=== PATIENT | male | born 1975 | race Caucasian/White ===

== ENCOUNTER 2020-06-17 20:52 | Emergency (ER) | payer SELFPAY ==
[2020-06-17 20:58] VITALS: BP 194/127; PULSE 143; RESP 18; TEMP 36.4; O2SAT 97; BMI 27.2
[2020-06-17 21:22] LABS: Urine Color Red (Yellow)
[2020-06-17 21:23] LABS: Add Urine Microscopic? YES; Bacteria Urine 1+ /hpf; Bilirubin Urine 1+ (Negative); Blood Urine 3+ (Negative); Glucose Urine UA Norm (Normal); Ketones Urine 1+ (Negative); Leukocyte Esterase Urine Trace (Negative); Nitrate Urine Positive (Negative); Protein Urine 3+ (Negative); RBC Urine TOO NUMEROUS TO CNT /hpf (0-2); Specific Gravity, Urine 1.025 (1.005-1.030); Squamous Epithelial Cell Urine 0-4 /hpf (0-5); Urine Appearance Bloody (CLEAR); Urobilinogen Urine 1 mg/dL (Negative); WBC Urine 0-4 /hpf (0-5); pH Urine 5 (5-7)
[2020-06-17 21:24] LABS: Add Urine Culture? Yes
--- NOTE | 2020-06-17 21:26 | ECG_ITS ---
[facility] Test Date: 2020-06-17 Pat Name: Mario Alberto Valerio Department: Room: Gender: Male Print Production Coordinator: : 1975 Requested By: Tanna Rangel Order Number: [id number] Villalobos MD: Peyton Coyne M.D. Measurements Intervals [place] Rate: 116 P: 60 WI: 129 QRS: 46 QRSD: 80 T: 21 QT: 313 QTc: 435 Interpretive Statements SINUS TACHYCARDIA MINIMAL VOLTAGE CRITERIA FOR LVH, CONSIDER NORMAL VARIANT [MEETS CRITERIA IN ONE OF: R(aVL), S(V1), R(V5), R(V5/V6)+S(V1)] NONSPECIFIC T-WAVE ABNORMALITY ABNORMAL RHYTHM ECG No previous ECG available for comparison Electronically Signed On 06-19-2020 20:51:57 CDT by Peyton Coyne M.D. [email or web address]
[2020-06-17 22:12] VITALS: BP 169/126; PULSE 129; RESP 13; O2SAT 97
--- NOTE | 2020-06-17 22:26 | ED_ITS ---
HPI - Male Genitourinary General: Chief complaint: Urogenital-Male Stated complaint: urinating blood Time Seen by Provider: 06/17/20 21:47 Source: patient Mode of arrival: ambulatory Limitations: no limitations History of Present Illness: HPI Narrative: 44-year-old male states that he has had hematuria over the last month. States is gotten once worse over the last 2 days and is now having large amounts of hematuria. He has had some suprapubic pain as well. He denies any fever. Denies any testicle pain denies any flank pain. He denies any worsening improving factors. He is not on any blood thinners. Associated symptoms: Reports dysuria and hematuria; Deny nausea or vomiting Review of Systems Const: Denies: fever(s), chills, body aches or change in appetite Eyes: Denies: blurry vision or eye discomfort ENMT: Denies: throat pain or dental pain Card: Denies: chest pain Resp: Denies: dyspnea GI: Denies: abdominal pain, nausea, vomiting or diarrhea : Reports: dysuria and hematuria Musc: Denies: neck pain or back pain Skin/Breast: Denies: rash Neuro: Denies: headache(s) Psych: Denies: depression Seamus/Lymph: Denies: easy bruising All/Imm: Denies: urticaria Physical Exam Const: COMMON NORMALS: no acute distress, patient oriented x3 and healthy appearing HENMT: COMMON NORMALS: normocephalic and atraumatic HEAD & SCALP: normocephalic and atraumatic Eye: COMMON NORMALS: Equal, round and reactive pupils present and EOMs intact bilaterally PUPIL: Yes Equal, round and reactive pupils present Neck/C-Spine: COMMON NORMALS: full ROM and supple Chest: COMMONS NORMALS: normal inspection of the chest and normal palpation of entire chest wall Resp: COMMON NORMALS: normal respiratory effort, No retractions, No use of accessory muscles and clear to auscultation bilaterally AUSCULTATION: clear to auscultation bilaterally Cardio: COMMON NORMALS: regular rhythm and No murmurs present (Cardio) RATE: tachycardic RHYTHM: regular rhythm GI: COMMON NORMALS: Normal to inspection, nondistended, normoactive bowel sounds present, Soft to palpation, non-tender and no masses PALPATION: Yes Soft to palpation Extremity: COMMON NORMALS: normal to inspection and full ROM Neuro: COMMON NORMALS: patient oriented x3, moves all extremities and no focal motor deficits Psych: COMMON NORMALS: mental status grossly normal, Normal thought process present and cooperative THOUGHT PROCESS: Normal thought process present Skin: COMMON NORMALS: no rashes or lesions noted and no wounds GENERAL SKIN EXAM: no rashes or lesions noted Course Vital Signs: Vital signs: Vital Signs Temperature 97.5 F L 06/17/20 20:58 Pulse Rate 129 H 06/17/20 22:12 Respiratory Rate 13 06/17/20 22:12 Blood Pressure 169/126 06/17/20 22:12 Pulse Oximetry 97 06/17/20 22:12 MDM - Male MDM Narrative: Medical decision making narrative: Patient presents with hematuria. He does have a urinary tract infection with gross hematuria. His CT scan shows no acute lesions and his blood work is normal. We will start him on antibiotics and have him follow-up with Dr. Gibson. He is return if worsening. Lab Data: Labs: Lab Results 06/17/20 06/17/20 06/17/20 Range/Units 21:00 21:50 22:57 WBC 13.6 H (4.0-10.0) 10^3/ uL RBC 5.13 (4.1-5.3) 10^6/u L Hgb 14.6 (11.7-16.6) g/dL Hct 44.5 (42.0-52.0) % MCV 86.7 (80-94) fL MCH 28.5 (28.0-34.0) pg MCHC 32.8 (30.0-36.0) g/dL RDW 13.7 (12.1-15.1) % Plt Count 198 (130-400) 10^3/c mm MPV 11.3 H (7.4-10.4) fL Neut % (Auto) 64.7 % Lymph % (Auto) 22.2 % Haines % (Auto) 12.2 % Eos % (Auto) 0.1 % Baso % (Auto) 0.4 % Neut # (Auto) 8.82 H (1.8-7.7) 10^3/u L Lymph # (Auto) 3.0 (0.8-4.8) 10^3/u L Haines # (Auto) 1.7 H (0.2-0.9) 10^3/u L Eos # (Auto) 0.0 (0.0-0.8) 10^3/u L Baso # (Auto) 0.1 (0.0-0.1) 10^3/u L Nucleated RBC % (a uto) 0 % Nucleated RBCs # 0.0 /100WBC Sodium (136-145) mmol/L Potassium (3.5-5.1) mmol/L Chloride (98-107) mmol/L Carbon Dioxide (22-29) mmol/L Anion Gap (5-19) BUN (6-20) mg/dL Creatinine (0.7-1.2) mg/dL GFR Calculation (90-130) mL/min Glucose (65-115) mg/dL Calculated Osmolal ity (285-295) mOsm/k g Lactic Acid (0.5-2.2) mmol/L Calcium (8.5-10.5) mg/dL Total Bilirubin (0.15-1.2) mg/dL AST (0-40) U/L ALT (0-41) U/L Alkaline Phosphata se (40-130) IU/L Total Protein (6.6-8.7) g/dL Albumin (3.5-5.2) g/dL Globulin (1.3-4.6) g/dL Urine Color Red (Yellow) Urine Appearance Bloody A (CLEAR) Urine pH 5 (5-7) Ur Specific Gravit y 1.025 (1.005-1.030) Urine Protein 3+ H (Negative) Urine Glucose (UA) Norm (Normal) Urine Ketones 1+ H (Negative) Urine Blood 3+ H (Negative) Urine Nitrate Positive H (Negative) Urine Bilirubin 1+ H (Negative) Urine Urobilinogen 1 H (Negative) mg/dL Ur Leukocyte Zeinab ase Trace H (Negative) Urine RBC Too numerous to c nt H (0-2) /hpf Urine WBC 0-4 H (0-5) /hpf Ur Squamous Epith Cells 0-4 H (0-5) /hpf Amorphous Sediment Not Reportable Urine Bacteria 1+ H (NONE) /hpf Urine Opiates Scre en Positive H (Negative) ng/mL Ur Barbiturates Sc reen Negative (Negative) ng/mL Ur Phencyclidine S crn Negative (Negative) ng/mL Ur Amphetamines Sc reen Positive H (Negative) ng/mL U Benzodiazepines Scrn Negative (Negative) ng/mL Urine Cocaine Scre en Negative (Negative) ng/mL U Marijuana (THC) Screen Negative (Negative) ng/mL 06/17/20 06/17/20 Range/Units 22:57 22:57 WBC (4.0-10.0) 10^3/ uL RBC (4.1-5.3) 10^6/u L Hgb (11.7-16.6) g/dL Hct (42.0-52.0) % MCV (80-94) fL MCH (28.0-34.0) pg MCHC (30.0-36.0) g/dL RDW (12.1-15.1) % Plt Count (130-400) 10^3/c mm MPV (7.4-10.4) fL Neut % (Auto) % Lymph % (Auto) % Haines % (Auto) % Eos % (Auto) % Baso % (Auto) % Neut # (Auto) (1.8-7.7) 10^3/u L Lymph # (Auto) (0.8-4.8) 10^3/u L Haines # (Auto) (0.2-0.9) 10^3/u L Eos # (Auto) (0.0-0.8) 10^3/u L Baso # (Auto) (0.0-0.1) 10^3/u L Nucleated RBC % (a uto) % Nucleated RBCs # /100WBC Sodium 139 (136-145) mmol/L Potassium 3.3 L (3.5-5.1) mmol/L Chloride 99 (98-107) mmol/L Carbon Dioxide 24 (22-29) mmol/L Anion Gap 19.3 H (5-19) BUN 22 H (6-20) mg/dL Creatinine 0.9 (0.7-1.2) mg/dL GFR Calculation 91.7 (90-130) mL/min Glucose 67 (65-115) mg/dL Calculated Osmolal ity 290 (285-295) mOsm/k g Lactic Acid 0.9 (0.5-2.2) mmol/L Calcium 9.8 (8.5-10.5) mg/dL Total Bilirubin 0.8 (0.15-1.2) mg/dL AST 61 H (0-40) U/L ALT 63 H (0-41) U/L Alkaline Phosphata se 105 (40-130) IU/L Total Protein 8.8 H (6.6-8.7) g/dL Albumin 4.8 (3.5-5.2) g/dL Globulin 4.0 (1.3-4.6) g/dL Urine Color (Yellow) Urine Appearance (CLEAR) Urine pH (5-7) Ur Specific Gravit y (1.005-1.030) Urine Protein (Negative) Urine Glucose (UA) (Normal) Urine Ketones (Negative) Urine Blood (Negative) Urine Nitrate (Negative) Urine Bilirubin (Negative) Urine Urobilinogen (Negative) mg/dL Ur Leukocyte Zeinab ase (Negative) Urine RBC (0-2) /hpf Urine WBC (0-5) /hpf Ur Squamous Epith Cells (0-5) /hpf Amorphous Sediment Urine Bacteria (NONE) /hpf Urine Opiates Scre en (Negative) ng/mL Ur Barbiturates Sc reen (Negative) ng/mL Ur Phencyclidine S crn (Negative) ng/mL Ur Amphetamines Sc reen (Negative) ng/mL U Benzodiazepines Scrn (Negative) ng/mL Urine Cocaine Scre en (Negative) ng/mL U Marijuana (THC) Screen (Negative) ng/mL EKG Data: EKG 1: Attestation: I personally reviewed and interpreted this EKG as follows: EKG Data: 06/16/20 EKG interpretation time: 23:35 Interpretation: Sinus tachycardia heart rate [address] or T wave normalities QRS 80 QTC 382 Discharge Plan Discharge Patient Disposition: Home Clinical Impression: Hematuria Urinary tract infection Qualifiers: Urinary tract infection type: acute cystitis Hematuria presence: with hematuria Qualified Code(s): N30.01 - Acute cystitis with hematuria Condition: Stable Prescriptions: [place] 5-325 mg tablet 1 tab PO Q6H PRN (Reason: pain) Qty: 14 RF: 0 Keflex 500 mg capsule 500 mg PO Q6H 7 Days Qty: 28 RF: 0 ondansetron 4 mg tablet,disintegrating 4 mg PO Q6H PRN (Reason: nausea and vomiting) Qty: 14 RF: 0 Discharge Orders: Discharge ED (Routine); Ordered 06/18/20 Ordered By: Mere Sauceda Referrals: Ortiz Gibson MD [Physician] - 1-3 days Discharge Diet: Advance as tolerated Discharge Activity: Resume usual activity Coding Level of Care Code ED Clinic Office Coordinator for Chg Fwd Exam Comprehensive
[2020-06-17 22:59] LABS: Amphetamines Screen Urine Positive (Negative); Barbiturates Screen Urine Negative (Negative); Benzodiazepines Screen Urine Negative (Negative); Cocaine Screen Urine Negative (Negative); Opiate Screen Urine Positive (Negative); PCP Screen Urine Negative (Negative); THC Screen Urine Negative (Negative)
[2020-06-17 23:04] LABS: Basophils # 0.1 10^3/uL (0.0-0.1); Basophils % 0.4 %; Eosinophils % 0.1 %; Hematocrit 44.5 % (42.0-52.0); Hemoglobin 14.6 g/dL (11.7-16.6); Lymphocytes % 22.2 %; Mean Corpuscular HGB Conc 32.8 g/dL (30.0-36.0); Mean Corpuscular Hemoglobin 28.5 pg (28.0-34.0); Mean Corpuscular Volume 86.7 fL (80-94); Mean Platelet Volume 11.3 fL (7.4-10.4); Monocytes # 1.7 10^3/uL (0.2-0.9); Monocytes % 12.2 %; Neutrophils # 8.82 10^3/uL (1.8-7.7); Neutrophils % 64.7 %; Nucleated Red Blood Cells % 0 %; Platelet Count 198 10^3/cmm (130-400); Red Blood Count 5.13 10^6/uL (4.1-5.3); Red Cell Distribution Width 13.7 % (12.1-15.1); White Blood Count 13.6 10^3/uL (4.0-10.0)
[2020-06-17 23:21] LABS: Lactic Sepsis W/Reflex 0.9 mmol/L (0.5-2.2)
[2020-06-17 23:22] LABS: Alanine Aminotransferase 63 U/L (0-41); Albumin Level 4.8 g/dL (3.5-5.2); Alkaline Phosphatase 105 IU/L (40-130); Anion Gap 19.3 (5-19); Aspartate Amino Transferase 61 U/L (0-40); Blood Urea Nitrogen 22 mg/dL (6-20); Calcium 9.8 mg/dL (8.5-10.5); Carbon Dioxide 24 mmol/L (22-29); Chloride 99 mmol/L (98-107); Glomerular Filtration Rate 91.7 mL/min (90-130); Glucose 67 mg/dL (65-115); Osmolality Calculated 290 mOsm/kg (285-295); Potassium 3.3 mmol/L (3.5-5.1); Sodium 139 mmol/L (136-145); Total Bilirubin 0.8 mg/dL (0.15-1.2); Total Protein 8.8 g/dL (6.6-8.7)
--- NOTE | 2020-06-17 23:39 | CTR_ITS ---
PROCEDURE INFORMATION: Exam: CT Abdomen And Pelvis Without Contrast Exam date and time: 06/17/2020 11:38 PM Age: 44 years old Clinical indication: Prior surgery; Surgery type: Hernia. Appy. ; Patient HX: Gross hematuria with pelvic pain TECHNIQUE: Imaging protocol: Computed tomography of the abdomen and pelvis without contrast. Radiation optimization: All CT scans at this facility use at least one of these dose optimization techniques: automated exposure control; mA and/or kV adjustment per patient size (includes targeted exams where dose is matched to clinical indication); or iterative reconstruction. COMPARISON: No relevant prior studies available. RADIATION DOSE METRICS: Total DLP (mGy-cm): 1410.9 FINDINGS: 10 mm nodule overlying the left diaphragm. Liver: Hepatic steatosis. Gallbladder and bile ducts: Normal. No calcified stones. No ductal dilation. Pancreas: Normal. No ductal dilation. Spleen: Normal. No splenomegaly. Adrenal glands: Normal. No mass. Kidneys and ureters: Several bilateral punctate nonobstructing renal calyceal stones. Stomach and bowel: Diverticulosis without diverticulitis. Prominent fluid in the small bowel without dilation may reflect an enteritis. Appendix: No evidence of appendicitis. Intraperitoneal space: Unremarkable. No free air. No significant fluid collection. Vasculature: Unremarkable. No abdominal aortic aneurysm. Lymph nodes: Unremarkable. No enlarged lymph nodes. Urinary bladder: Unremarkable as visualized. Reproductive: Unremarkable as visualized. Bones/joints: Unremarkable. No acute fracture. Soft tissues: Unremarkable. CT/CT abdomen pelvis wo con [id number] IMPRESSION: 1. Prominent fluid in the small bowel without dilation may reflect an enteritis. 2. Hepatic steatosis. 3. Diverticulosis without diverticulitis. 4. Several bilateral punctate nonobstructing renal calyceal stones. 5. 10 mm nodule overlying the left diaphragm.For both low risk and high risk patients, consider CT Chest at 3 months, PET/CT, or biopsy. (Reference: [place]) References: [place] Dyson et al. Guidelines for Management of Incidental Pulmonary Nodules Detected on CT Images: From the Fleischner Society 2017. Radiology. 2017;284(1):228-243. Radiation Dose CTDIVOL = (mGy): DLP = 1410.9 (mGy-cm)
[2020-06-18] MEDS: HYDROcodone-acetaminophen 10-325 mg Tablet 1 TAB PO (00:04)
[2020-06-18] MEDS: cefTRIAXone 1,000 mg SDV 1000 MG IM (00:06)
[2020-06-18 00:31] VITALS: BP 167/125; PULSE 118; RESP 19; O2SAT 99
--- NOTE | 2020-06-20 14:52 | DCPLANNER ---
correctional counselor/case manager had message to schedule a follow up appointment for patient with Dr. Gibson. correctional counselor/case manager called the office of Dr. Gibson, spoke with Maya, gave clinic patients information. Patients information will be printed and reviewed, clinic will call patient with appointment information.
--- NOTE | 2020-06-21 07:58 | DCPLANNER ---
Patient has a follow up appointment scheduled for Saturday, July 04, 2020 at 3:[address] Gibson. Clinic will call patient with appointment information.
--- NOTE | 2020-07-06 10:29 | DCPLANNER ---
Patient had a follow up appointment scheduled for 07.04.[address] Gibson - appointment was cancelled.
== END 2020-06-18 00:31 | disposition home or self-care (01) ==
PROVIDERS: Physician Assistant; Emergency Provider Emergency Medicine
DX: N30.01 Acute cystitis with hematuria (principal)
CPT/HCPCS: 74176; 80053; 80306; 81001; 83605; 85025; 87086; 93005; 96372; 99283; J0696